=== PATIENT | male | born 1960 | race Caucasian/White ===

== ENCOUNTER 2017-02-14 00:15 | Emergency (ER) | payer OTHER ==
[~2017-02-14] VITALS: Ht 170.2 cm; Wt 61.4 kg
--- NOTE | ~2017-02-14 | EKG ---
PATIENT: SALONI PENA UNIT #: [id number] Ventricular Rate: 83 BPM Atrial Rate: 83 BPM P-R Interval: 162 ms QRS Duration: 78 ms Q-T Interval: 370 ms QTC Calculation(Bezet): 434 ms P [place]: 70 degrees Calculated R [place]: 74 degrees Calculated T [place]: 72 degrees Diagnosis Line: Normal sinus rhythm Diagnosis Line: Normal ECG Diagnosis Line: When compared with ECG of 10-JAN-2016 20:18, Diagnosis Line: No significant change was found Diagnosis Line: Confirmed by TIM HARMON MD ([id number]) on Diagnosis Line: 02/15/2017 4:04:42 PM INTERPRETING MD: FAUSTINO WALTON
--- NOTE | ~2017-02-14 | CR63 ---
[facility]. [facility] A Service of [facility] & [facility] RADIOLOGY TEXT RESULTS PATIENT: SALONI PENA LOCATION: SED : 62 UNIT #: [id number] AGE: [address]: Geoffrey Ivy DO SEX: M ORDER DR: [id number] [place] [id number] E MR#: [id number] Acc #: [id number] NAME: SALONI PENA : 1960 SEX: M STUDY DATE/TIME: 02/14/2017 2:20 UNIT: SED ROOM: STUDY DESCRIPTION: CR Chest 2 View Attending Physician: Geoffrey Ivy Ordering Physician: Geoffrey Ivy Primary Care Physician: Eva Retana M.D. MEDICAL IMAGING REPORT This report is preliminary unless electronic signature is present. EXAM Chest x-ray 02/14/2017 HISTORY 56-year-old male in the ED complaining of 3-day history of shortness of air and cough. History of COPD. TECHNIQUE PA and lateral upright chest series. FINDINGS Generalized pulmonary hyperinflation with changes of pulmonary emphysema. Mild patchy infiltrates are suspected in both upper lobes, not present on the previous study of 07/17/2016. Remaining portions of both lungs are clear. No pleural effusion. Heart size and pulmonary vascularity are normal. IMPRESSION Pulmonary emphysema with mild patchy infiltrates in both upper lobes. Dictated by... Tal Callahan M.D. THIS IS AN ELECTRONICALLY VERIFIED REPORT Tal Callahan M.D. at 02/14/2017 5:26 AM CORRY/humaira TD: 02/14/2017 04:27 JOB #: [id number] MEDICAL IMAGING REPORT Page 1 of 1
[~2017-02-14 00:15] MED LIST: ALBUTEROL MININEB NEB; ALBUTEROL17 GM INH; BENZONATATE PO; DOXYCYCLINE HY100 M1 PO; FLONASE 0.05% N16 G1; IBUPROFEN M200 M1 PO; LEVAQUIN750 MG PO; LORTAB ELIXIR15 ML PO; PREDNISONE PO; ROBITUSSIN A-C S5 ML PO; SUDAFED PO; SYMBICORT 160/4.6 G1 INH; SYMBICORT INH; TUDORZA PRESS400 MCG IH; VIBRAMYCIN100 M1 PO; WELLBUTRIN PO; ZITHROMAX PO
[2017-02-14] MEDS ORDERED: BREO ELLIPTA 21 EACH (00:24)
[2017-02-14] MEDS ORDERED: INCRUSE ELLI62.5 MCG (00:25)
[2017-02-14 01:48] LABS: BASOPHIL% 0.5 % (0-2.5); EOSINOPHIL# 0.3 X10e3 (0-0.7); EOSINOPHIL% 3.1 % (0.0-7.0); HEMATOCRIT 38.6 % (38.0-50.0); HEMOGLOBIN 13.2 gm/dL (13.0-16.0); LYMPHOCYTE# 1.9 X10e3 (1.0-3.5); MEAN CELL VOLUME 88.9 FL (83-96); MEAN CORPUSCULAR HEMOGLOBIN 30.5 PG (28-34); MEAN CORPUSCULAR HGB CONC 34.3 g/dL (30-36); MEAN PLATELET VOLUME 7.3 FL (6.5-11.5); MONOCYTE# 0.5 X10e3 (0-1.0); MONOCYTE% 5.5 % (3.0-12.0); NEUTROPHIL# 6.7 X10e3 (1.5-7.1); NEUTROPHIL% 70.9 % (40-75); PLATELET COUNT 249 X10e3 (140-420); RED BLOOD COUNT 4.34 X10e (3.90-5.60); RED CELL DISTRIBUTION WIDTH 13.9 % (11.0-15.5); WHITE BLOOD COUNT 9.4 X10e3 (4.0-10.5)
[2017-02-14 01:49] LABS: DIFF IND NO
[2017-02-14 02:13] LABS: ALBUMIN SERUM 3.7 g/dL (3.5-5.0); BILIRUBIN, DIRECT 0.1 mg/dL (0.0-0.2); BILIRUBIN,INDIRECT 0.3 mg/dL (0.0-0.9); BILIRUBIN,TOTAL 0.4 mg/dL (0.2-2.0); BUN/CREATININE RATIO 17.5; CALCIUM SERUM 8.4 mg/dL (8.4-10.2); CREATININE SERUM 0.8 mg/dL (0.6-1.4); GLOM FILT RATE Estimated 100.6 mL/min (>60); POTASSIUM 3.2 mmol/L (3.5-5.1); PROTEIN TOTAL SERUM 6.5 g/dL (6.0-8.3)
== END 2017-02-14 03:18 | disposition home or self-care (01) ==
LOC: SED 00:15
PROVIDERS: Emergency Medicine
DX: J44.1 Chronic obstructive pulmonary disease with (acute) exacerbation (principal); E87.6 Hypokalemia; J18.9 Pneumonia, unspecified organism; Z79.899 Other long term (current) drug therapy
CPT/HCPCS: 36415; 71020; 80048; 80076; 85025; 87040; 93005; 94640; 96374; 99285; J2930

== ENCOUNTER → 2017-03-17 | Outpatient (CLI) | payer OTHER ==
[~2017-03-17] MED LIST changes: +BREO ELLIPTA 21 EACH; +INCRUSE ELLI62.5 MCG
--- NOTE | ~2017-03-17 | CT55 ---
[facility] A Service of [facility] & [facility] RADIOLOGY TEXT RESULTS PATIENT: SALONI PENA LOCATION: [facility] : 62 UNIT #: [id number] AGE: [address]: Radha Jackson SEX: M ORDER DR: [id number] [address] [address] [id number] O MR#: [id number] Acc #: [id number] NAME: SALONI PENA : 1960 SEX: M STUDY DATE/TIME: 03/17/2017 8:14 UNIT: [facility] ROOM: STUDY DESCRIPTION: CT Chest W Con Attending Physician: Radha Jackson A.P.R.N. Referring Physician: Radha Jackson A.P.R.N. Ordering Physician: Radha Jackson A.P.R.N. Primary Care Physician: Eva Retana M.D. MEDICAL IMAGING REPORT This report is preliminary unless electronic signature is present. EXAM CT chest with contrast 03/17/2017 HISTORY Pneumonia. Short of breath times 3 weeks ago. Stopped smoking 28 days ago. Abnormal chest x-ray. COPD. FINDINGS CT chest performed with intravenous administration 100 mL Isovue-370. No prior CTs chest for comparison. There is a chest radiograph dated 02/14/2017. This CT examination was performed with one or more of the following radiation dose reduction techniques: automatic exposure control, adjustment of mA and/or kV according to patient size, and iterative reconstruction. Thyroid unremarkable. No axillary, mediastinal or hilar adenopathy. Heart is normal in size. No pleural effusions. Visualized portions of liver, gallbladder, spleen, pancreas, adrenal glands, kidneys notable for subcentimeter exophytic cyst upper pole left kidney. Esophagus, visualized portions of stomach, small bowel, colon unremarkable. Extensive centrilobular and panlobular emphysema throughout the lungs. There are areas of subpleural fibrotic change at the bilateral lung apices. Two areas of somewhat nodular density at the lung apices. On the right, there is a 7 mm x 11 mm x 8 mm subpleural nodule posteriorly at the uppermost right lower lobe superior segment. Slightly irregular margins. In the posterior-superior left upper lobe, there is a 1 cm x 1.2 cm x approximately 1.3 cm nodular density with somewhat irregular margins. Both of these findings are in areas of more linear fibrotic change and may simply reflect components of fibrotic change but true neoplastic nodules not excluded. There is a third possible nodule along the superior aspect of the right major fissure measuring 8 mm x 1.4 cm x 1 cm. In the absence of prior studies demonstrating prolonged stability of these nodular densities, I would recommend evaluation with CT/PET scan. Depending upon CT/PET scan findings, short interval followup in 3 months would be STS. [facility] A Service of [facility] RADIOLOGY TEXT RESULTS PATIENT: SALONI PENA LOCATION: [facility] : 62 UNIT #: [id number] AGE: [address]: Radha Jackson SEX: M ORDER DR: recommended. There is a smaller approximately 5 mm noncalcified nodule in the right upper lobe perihilar region image number 26. Attention at followup recommended. There is no clear indication of acute infectious or inflammatory disease. The vascular structures are unremarkable. The bony structures show no acute abnormality. IMPRESSION 1. Extensive centrilobular and panlobular emphysema throughout the lungs bilaterally. There is no clear indication of acute infectious or inflammatory disease. 2. Noncalcified pulmonary nodules bilaterally. In the left lung, the dominant nodule is in the posterior-superior upper lobe measuring 1.2 cm x 1 cm x 1.3 cm. In the right lung, there is a 7 mm x 1.1 cm x 8 mm nodule in the superior segment of the right lower lobe and in the right upper lobe along the major fissure there is an 8 mm x 1.4 cm x 1 cm nodular density. All of these nodules are in areas of probable fibrotic change and very likely represent more nodular components of chronic fibrotic change. Neoplastic nodules not excluded. Given the patient's underlying emphysematous change and the irregular margination of these nodules in some areas, I would recommend CT/PET scan for further evaluation. Depending upon CT/PET scan findings, short-interval morphologic followup with noncontrast enhanced CT examination may be warranted. There is a fourth 5 mm noncalcified nodule in the perihilar region of the left upper lobe. 3. No adenopathy. 4. Heart size normal. 5. No acute abnormality in the visualized upper abdomen. There is a small left upper pole renal cyst. Dictated by... Karl Frye M.D. THIS IS AN ELECTRONICALLY VERIFIED REPORT Karl Frye M.D. at 03/18/2017 7:30 PM PATRICE/angie TD: 03/18/2017 08:59 JOB #: [id number] MEDICAL IMAGING REPORT Page 1 of 1
== END | disposition home or self-care (01) ==
LOC: SCT 07:50
DX: J43.9 Emphysema, unspecified (principal); R06.02 Shortness of breath; J18.9 Pneumonia, unspecified organism; R93.8 Abnormal findings on diagnostic imaging of other specified body structures; J43.2 Centrilobular emphysema; R91.8 Other nonspecific abnormal finding of lung field
CPT/HCPCS: 71260; Q9967